=== PATIENT | male | born 1970 | race Caucasian/White ===

== ENCOUNTER → 2019-07-01 | Outpatient (CLI) | payer BC ==
--- NOTE | 2019-07-01 16:24 | Diagnostic Imaging Report ---
Chest, 2 views, 07/01/2019. History: Hypertension. Comparison: None available. Findings: The cardiomediastinal silhouette and pulmonary vasculature are within normal limits. The lungs are clear without evidence of consolidation or pleural effusion. There are no acute osseous or soft tissue abnormalities. Impression: No acute cardiopulmonary abnormality. Signed by: Bonifacio Lee on 07/01/2019 4:20 PM
== END ==
LOC: RAD 15:20
DX: I10 Essential (primary) hypertension (principal)
CPT/HCPCS: 71046